=== PATIENT | male | born 1945 | race Caucasian/White ===

== ENCOUNTER 2023-12-11 19:02 | Observation (INO) ==
--- NOTE | 2023-12-11 19:29 | Emergency Department Note ---
Impression & Plan Chest pain, Tachycardia, Non-ST elevation RI (NSTEMI) ED Provider Note HISTORY OF PRESENT ILLNESS: Patient is a 78-year-old male presenting with chest pain and shortness of breath. 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 He reports he became short of breath and felt like his heart was racing. He states that he has had intermittent episodes of this chest pain over the last few months but did not think much of it because it did not last for very long. He reports that today's chest pain lasted for about an hour. He is chest pain-free on arrival, but is complaining of shortness of breath. He denies any DVT or PE history. He denies any history of cardiac stents. He is not on any anticoagulation or antiplatelet therapy. He reports he just drove up from [place] today. He denies any recent long travel or recent surgeries. He denies any nausea or vomiting. ROS: as above PHYSICAL EXAM: Constitutional: Patient appears in no acute distress. HENT: Head: Normocephalic and atraumatic. Eyes: EOMI, PERRL Mouth/Throat: Mucous membranes moist. Neck: Trachea midline. Neck supple. Cardiovascular: Tachycardic with regular rhythm. No murmurs, rubs or gallops. Intact distal pulses. Pulmonary/Chest: No respiratory distress. Breath sounds clear and equal bilaterally. No wheezes or rales. Abdominal: Abdomen soft, no tenderness, rebound or guarding. Musculoskeletal: No edema, tenderness or deformity noted. Skin: Warm and dry. No rash, erythema, pallor or cyanosis Psychiatric: Appropriate mood and affect for situation. Neurological: Alert and keenly responsive. CN II-XII grossly intact, moving all extremities equally and fully. MDM: - Vitals signs showed hypotension and tachycardia - History obtained via patient. History as above. - Chronic conditions affecting care: HTN; HLD - Differential diagnoses include, but are not limited to: Acute coronary syndrome; pulmonary embolism; dissection; tension pneumothorax; esophageal rupture; pneumonia - Order placed for continuous cardiac monitoring. At this time, monitor showed rate of 68 bpm with normal sinus rhythm, per my interpretation. - External medical records reviewed. - EKG interpreted by myself showed narrow complex tachycardia. Rate 156 bpm. No acute ischemic changes. QT 258. No appreciable T waves to appreciate a sinus tachycardia. Concern for SVT. - Laboratory workup interpreted by myself showed normal WBC; elevated dimer (700); stable electrolytes; normal troponin; elevated BNP (149); normal lipase - CXR negative for pneumonia, per my interpretation - CT PE negative for PE - Repeat troponin elevated at 26.1 - After 5 mg IV lopressor, patient's heart rate improved and he converted into normal sinus rhythm. EKG obtained at 194 interpreted by myself showed normal sinus rhythm. Rate 82 bpm. QT 344. No acute ischemic changes. - Discussion was had with correctional case manager about patient's case and need for admission - Hospitalist, Dr. Babin, consulted for admission - [facility] ASSESSMENT AND PLAN: Diagnosis: chest pain; tachycardia; NSTEMI Plan: admit Past Med/Surg History Problem List (Updated 12/11/23 @ 22:59 by Helena Cheatham MD) Non-ST elevation RI (NSTEMI) (Acute) Tachycardia (Acute) Chest pain (Acute) Social History Smoking Status: Never smoker Preferred Language: Danish Feels Safe at Home: Yes Allergies Allergies Allergy/AdvReac Type Severity Reaction Status Date / Time No Known Allergies Allergy Unverified 12/11/23 22:46 Home Meds Home Medications Medication Instructions Recorded Confirmed aspirin 81 mg tablet,delayed 81 mg PO QA 12/11/23 12/11/23 release atorvastatin 20 mg tablet 20 mg PO QA 12/11/23 12/11/23 fludrocortisone 0.1 mg tablet 0.1 mg PO QA 12/11/23 12/11/23 fluticasone propionate 50 1 spray intranasal QA 12/11/23 12/11/23 mcg/actuation nasal spray,suspension rasagiline 0.5 mg tablet 0.5 mg PO QA 12/11/23 12/11/23 Results & Data (ED) Vital Signs Vital Signs - 24 hr 12/11/23 19:09 12/11/23 19:25 12/11/23 19:25 Temperature 36.6 C Temperature Source Temporal Artery Scan Pulse Rate 144 H Pulse Rate from SpO2 Sensor Pulse Rhythm Irregular Respiratory Rate 18 22 Respiratory Effort / Characteristics Non-Labored Spontaneous Respiratory Depth Normal Respiratory Pattern Regular Blood Pressure 93/52 L Blood Pressure Mean 65 Blood Pressure Position Sitting Pulse Oximetry 96 95 95 Oxygen Delivery Method Room Air Room Air Room Air Sepsis Recent Fever Within 48 Hours No Sepsis New/Unexplained Change in Mental Status N/A Sepsis Action Taken by Nursing No Action Required 12/11/23 19:26 12/11/23 19:27 12/11/23 19:31 Temperature Temperature Source Pulse Rate 162 H 140 H Pulse Rate from SpO2 Sensor Pulse Rhythm Respiratory Rate Respiratory Effort / Characteristics Respiratory Depth Respiratory Pattern Blood Pressure 163/104 H 163/104 H Blood Pressure Mean 117 Blood Pressure Position Pulse Oximetry Oxygen Delivery Method Sepsis Recent Fever Within 48 Hours Sepsis New/Unexplained Change in Mental Status Sepsis Action Taken by Nursing 12/11/23 19:33 12/11/23 19:33 12/11/23 19:33 Temperature Temperature Source Pulse Rate 92 H 90 Pulse Rate from SpO2 Sensor 92 H Pulse Rhythm Respiratory Rate 22 Respiratory Effort / Characteristics Respiratory Depth Respiratory Pattern Blood Pressure 143/82 H 143/82 H Blood Pressure Mean 102 110 Blood Pressure Position Pulse Oximetry 98 Oxygen Delivery Method Room Air Sepsis Recent Fever Within 48 Hours Sepsis New/Unexplained Change in Mental Status Sepsis Action Taken by Nursing 12/11/23 19:44 12/11/23 19:45 12/11/23 19:45 Temperature Temperature Source Pulse Rate 86 82 82 Pulse Rate from SpO2 Sensor 86 82 Pulse Rhythm Respiratory Rate 18 19 Respiratory Effort / Characteristics Respiratory Depth Respiratory Pattern Blood Pressure 144/81 H 149/84 H 149/84 H Blood Pressure Mean 102 95 Blood Pressure Position Pulse Oximetry 96 95 Oxygen Delivery Method Room Air Room Air Sepsis Recent Fever Within 48 Hours Sepsis New/Unexplained Change in Mental Status Sepsis Action Taken by Nursing 12/11/23 21:32 Temperature Temperature Source Pulse Rate 68 Pulse Rate from SpO2 Sensor 96 H Pulse Rhythm Respiratory Rate 16 Respiratory Effort / Characteristics Respiratory Depth Respiratory Pattern Blood Pressure 139/96 Blood Pressure Mean 110 Blood Pressure Position Pulse Oximetry 96 Oxygen Delivery Method Room Air Sepsis Recent Fever Within 48 Hours Sepsis New/Unexplained Change in Mental Status Sepsis Action Taken by Nursing Laboratory Data 12/11/23 19:23 12/11/23 19:23 Lab Results 12/11/23 12/11/23 12/11/23 Range/Units 19:23 19:28 21:33 WBC 7.11 (4.8-10.8) K/ul RBC 4.90 (4.70-6.10) M/uL Hgb 14.5 (14.0-18.0) g/dl POC Hgb 15.0 (14.0-18.0) g/dl Hct 45.2 (42.0-52.0) % POC Hct 44 (42-52) % MCV 92.2 (80.0-100.0) fL MCH 29.6 (25.0-34.0) pg MCHC 32.1 (32.0-36.0) g/dL RDW Std Deviation 42.5 (36.4-46.3) fL RDW Coeff of Erica 12.5 (11.5-14.5) % Plt Count 213 (130-400) K/uL MPV 9.5 (9.4-12.4) fL Immature Gran % (Auto) 0.3 % Neut % (Auto) 61.2 % Lymph % (Auto) 22.2 % [place]ster % (Auto) 9.8 % Eos % (Auto) 5.1 % Baso % (Auto) 1.4 % Neut # (Auto) 4.35 (1.40-6.50) K/uL Lymph # (Auto) 1.58 (1.20-3.40) K/uL [place] # (Auto) 0.70 H (0.11-0.59) K/uL Eos # (Auto) 0.36 (0.00-0.50) K/uL Baso # (Auto) 0.10 (0.00-0.20) K/uL Immature Gran # (Auto) 0.02 (0.01-0.20) K/uL D-Dimer 700 H* (0-500) ug/L FEU POC Sodium 143 (135-144) mmol/L Sodium 140 (136-145) mmol/L POC Potassium 3.7 (3.3-5.0) mmol/L Potassium 3.9 (3.5-5.1) mmol/L POC Chloride 106 (101-112) mmol/L Chloride 107 (98-107) mmol/L Carbon Dioxide 28 (21-32) mmol/L POC Total CO2 24 (24-31) mmol/L Anion Gap 5 (3-11) POC Anion Gap 18.0 (16-25) mmol/L POC BUN 27 H (7-18) mg/dl BUN 27 H (6-23) mg/dl Creatinine 1.01 (0.6-1.4) mg/dl POC Creatinine 1.1 (0.6-1.3) mg/dl Est Cr Clr Drug Dosing 61.3 ml/min eGFR 76.60 BUN/Creatinine Ratio 26.7 H (10-20) Glucose 109 H (70-99(Fasting)) mg/dl POC Glucose (other) 109 H (70-99) mg/dl Calcium 9.1 (8.6-10.3) mg/dl POC Ioniz Calcium Trey 1.23 (1.12-1.32) mmol/l Magnesium 2.1 (1.7-2.4) mg/dl Total Bilirubin 0.5 (0.2-1.0) mg/dl AST 18 (13-39) U/L ALT 12 (7-52) U/L Alkaline Phosphatase 74 (34-104) U/L Troponin I High Sens 8.0 26.1 H D (0-20) pg/ml B-Natriuretic Peptide 149 H (0-100) pg/ml Total Protein 6.6 (6.0-8.3) gm/dl Albumin 3.9 (3.4-5.0) gm/dl Globulin 2.7 (2.5-4.0) gm/dl Albumin/Globulin Ratio 1.4 (0.9-2) Lipase 40 (11-82) U/L Administered Medications Discontinued Medications Ioversol (Optiray 320 125ml) 118 ml IV ONCE ONE Stop: 12/11/23 20:07 Last Admin: 12/11/23 20:07 Dose: 118 ml Documented By: KEAGAN Metoprolol Tartrate (Metoprolol Tartrate 1 Mg/Ml Vial) 5 mg IV NOW STA Stop: 12/11/23 19:28 Last Admin: 12/11/23 19:31 Dose: 5 mg Documented By: CARMELINA Imaging Data Radiologist's Impression: Chest CTA 12/11/23 19:43 Exam(s): CTA CHEST EXAM: CT Angiography Chest With Intravenous Contrast CLINICAL HISTORY: Reason for exam: PE. TECHNIQUE: Axial computed tomographic angiography images of the chest with intravenous contrast. CTDI is 11.87 mGy and DLP is 573.81 mGy-cm. Automated exposure control was utilized for the study. A dose lowering technique was utilized adhering to the principles of ALARA. MIP reconstructed images were created and reviewed. COMPARISON: None. FINDINGS: Motion-induced image degradation. Pulmonary arteries: Main/central pulmonary arteries are normal in caliber. No pulmonary embolism. Aorta: No acute findings. Atherosclerotic calcification of the aortic arch. No thoracic aortic aneurysm. Heart: Mild/moderate cardiomegaly. No significant pericardial effusion. No evidence of RV dysfunction. Lungs: Central airways are patent. Bilateral bronchial wall thickening and mild dilatation/tubular bronchiectasis. Bilateral interstitial/septal thickening, mild/moderate centrilobular emphysema. Bibasilar subpleural and parenchymal interlobular/intra-lobular reticular interstitial thickening with linear areas of atelectasis demonstrated. Biapical mild pleural/parenchymal thickening. Medially in the left lower lobe adjacent to the esophagus a small calcified nodule/granuloma seen. No mass. No consolidation. Pleural space: Unremarkable. No significant effusion. No pneumothorax. Bones/joints: No acute fracture. No dislocation. Mid/lower thoracic degenerative endplate spondylosis with anteriorly bridging osteophytes. Soft tissues: Unremarkable. Lymph nodes: Small calcified prevascular and left hilar lymph nodes. No enlarged lymph nodes. IMPRESSION: No pulmonary embolism, aortic aneurysm or dissection. Bilateral bronchial wall thickening, mild central tubular bronchiectasis and centrilobular pulmonary emphysema. Bibasilar subpleural and parenchymal fibrotic reticular mild interstitial opacities with associated linear areas of atelectasis.. Mild/moderate cardiomegaly. Electronically signed by: Prasad Adrian MD, ELLEN 12/11/23 21:04 PM Discharge Plan Visit Data Chief Complaint: Cardiac Assessment Stated Complaint: CHEST PAINS, SOB, LEFT SIDE PAIN, WEAK ED Provider: Helena Cheatham Discharge Problem: Chest pain, Tachycardia, Non-ST elevation RI (NSTEMI) Forms Stand Alone Forms: [facility] B-Obvious Prescriptions Prescriptions: No Action atorvastatin 20 mg tablet 20 mg PO QAM fludrocortisone 0.1 mg tablet 0.1 mg PO QAM rasagiline 0.5 mg tablet 0.5 mg PO QAM aspirin [Aspir-Low] 81 mg Tablet,Delayed Release (Dr/Ec) 81 mg PO QAM fluticasone propionate 50 mcg/actuation spray,suspension 1 spray INTRANASAL QAM Referrals Referrals: PCP,NO [Primary Care Provider] -
[2023-12-11] MEDS: METOPROLOL TARTRATE 1 MG/ML VIAL IV STA (19:31)
[2023-12-11 19:41] LABS: iSTAT Creatinine 1.1 mg/dl (0.6-1.3); iSTAT Ionized Calcium 1.23 mmol/l (1.12-1.32); iSTAT Potassium 3.7 mmol/L (3.3-5.0)
[2023-12-11 19:41] LABS: Basophils % (auto) 1.4 %; Eosinophils # (auto) 0.36 K/uL (0.00-0.50); Eosinophils % (auto) 5.1 %; Hematocrit (blood only) 45.2 % (42.0-52.0); Hemoglobin 14.5 g/dl (14.0-18.0); Immature Granulocytes # (auto) 0.02 K/uL (0.01-0.20); Immature Granulocytes % (auto) 0.3 %; Lymphocytes # (auto) 1.58 K/uL (1.20-3.40); Lymphocytes % (auto) 22.2 %; Mean Corpuscular Hemoglobin 29.6 pg (25.0-34.0); Mean Corpuscular Hgb Conc 32.1 g/dL (32.0-36.0); Mean Corpuscular Volume 92.2 fL (80.0-100.0); Mean Platelet Volume 9.5 fL (9.4-12.4); Monocytes % (auto) 9.8 %; Neutrophils # (auto) 4.35 K/uL (1.40-6.50); Neutrophils % (auto) 61.2 %; Platelet Count 213 K/uL (130-400); RDW Coefficient of Variation 12.5 % (11.5-14.5); RDW Standard Deviation 42.5 fL (36.4-46.3); White Blood Count 7.11 K/ul (4.8-10.8)
[2023-12-11 19:55] LABS: Albumin Globulin Ratio 1.4 (0.9-2); Albumin Level 3.9 gm/dl (3.4-5.0); BUN Creatinine Ratio 26.7 (10-20); Bilirubin,Total 0.5 mg/dl (0.2-1.0); Calcium 9.1 mg/dl (8.6-10.3); Creatinine Clr Calc Pharmacy 61.3 ml/min; Globulin 2.7 gm/dl (2.5-4.0); Magnesium 2.1 mg/dl (1.7-2.4); Potassium 3.9 mmol/L (3.5-5.1); Total Protein 6.6 gm/dl (6.0-8.3)
[2023-12-11] MEDS: OPTIRAY 320 125ml IV ONE (20:07)
[2023-12-11 20:13] LABS: D Dimer 700 ug/L FEU (0-500)
--- NOTE | 2023-12-11 21:06 | CT Scan Report ---
Exam(s): CTA CHEST EXAM: CT Angiography Chest With Intravenous Contrast CLINICAL HISTORY: Reason for exam: PE. TECHNIQUE: Axial computed tomographic angiography images of the chest with intravenous contrast. CTDI is 11.87 mGy and DLP is 573.81 mGy-cm. Automated exposure control was utilized for the study. A dose lowering technique was utilized adhering to the principles of ALARA. MIP reconstructed images were created and reviewed. COMPARISON: None. FINDINGS: Motion-induced image degradation. Pulmonary arteries: Main/central pulmonary arteries are normal in caliber. No pulmonary embolism. Aorta: No acute findings. Atherosclerotic calcification of the aortic arch. No thoracic aortic aneurysm. Heart: Mild/moderate cardiomegaly. No significant pericardial effusion. No evidence of RV dysfunction. Lungs: Central airways are patent. Bilateral bronchial wall thickening and mild dilatation/tubular bronchiectasis. Bilateral interstitial/septal thickening, mild/moderate centrilobular emphysema. Bibasilar subpleural and parenchymal interlobular/intra-lobular reticular interstitial thickening with linear areas of atelectasis demonstrated. Biapical mild pleural/parenchymal thickening. Medially in the left lower lobe adjacent to the esophagus a small calcified nodule/granuloma seen. No mass. No consolidation. Pleural space: Unremarkable. No significant effusion. No pneumothorax. Bones/joints: No acute fracture. No dislocation. Mid/lower thoracic degenerative endplate spondylosis with anteriorly bridging osteophytes. Soft tissues: Unremarkable. Lymph nodes: Small calcified prevascular and left hilar lymph nodes. No enlarged lymph nodes. IMPRESSION: No pulmonary embolism, aortic aneurysm or dissection. Bilateral bronchial wall thickening, mild central tubular bronchiectasis and centrilobular pulmonary emphysema. Bibasilar subpleural and parenchymal fibrotic reticular mild interstitial opacities with associated linear areas of atelectasis.. Mild/moderate cardiomegaly. Electronically signed by: Prasad Adrian MD, DABR 12/11/23 21:04 PM
--- NOTE | 2023-12-11 22:53 | History & Physical Report ---
Date of Service December 11, 2023 Assessment & Plan (1) Chest pain: Plan: 78yo male with history of myocardial bridging presenting with acute episode of chest pain. Patient with mild elevation of troponin on repeat 8 --> 26.1. Presently chest pain free. Initial EKG with narrow complex tachycardia - ?atrial flutter vs SVT s/p return to NSR following Metoprolol 5mg IV. Elevation of troponin possibly rate related. Patient remains chest pain free. -Observation to PCU -Telemetry monitoring -Trend troponin -Check 2D echo (mild to moderate cardiomegaly noted on CT imaging) -EKG as needed for chest pain -Nitrogylcerine PRN chest pain -Cardiology consultation appreciated -Records from home model [employer] requested -Continue home ASA, Atorvastatin (2) Tachycardia: Plan: Possible atrial flutter vs SVT on arrival - resolved with IV Metoprolol -Telemetry monitoring -Check 2D echo -Cardiology consultation appreciated Plan Orthostatic hypotension -Continue Fludrocortisone History of Present Illness Chief Complaint: chest pain Primary Care Provider: NO PCP Justus Monge is a pleasant 78yo male with history of benign essential tremor and hypotension presenting with complaint of chest pain. Patient resides in the [facility] and is here for the football game. Earlier today around 16:00 he was unloading a car when he developed acute sudden substernal chest pain with radiation to the left shoulder. Patient reports the pain as pressure, some associated shortness of breath and lightheadedness. The chest pain lasted several hours then resolved on its own. Patient had a similar episode of chest pain several weeks ago which occurred while he was laying in bed trying to go to sleep. He reports difficulty getting comfortable. Pain lasted several hours on that occasion then resolved on its own. Patient endorses progressive NICHOLAS and decreased exercise tolerance over the last few months. Otherwise he denies palpitations, abdominal pain, nausea, vomiting, diarrhea, edema, orthopnea or weight gain. He denies heartburn, no trauma or overuse recently. Upon arrival to the ER patient with narrow complex tachycardia at 156bpm concerning for SVT. He was given Metoprolol 5mg IV with return to NSR. ER Course: Metoprolol 5mg IV Patient reports no personal history of CAD or prior DE. He did have a cardiac catheterization performed 5-6 years ago in [place] at [facility]. 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 No stents were placed. Patient was started on Metoprolol at that time. He follows with [facility] [place] - Dr. Reaves Allergies Allergy/AdvReac Type Severity Reaction Status Date / Time No Known Allergies Allergy Unverified 12/11/23 22:46 Home Medications Medication Instructions Recorded Confirmed Type aspirin 81 mg tablet,delayed 81 mg PO QA 12/11/23 12/11/23 History release atorvastatin 20 mg tablet 20 mg PO QA 12/11/23 12/11/23 History fludrocortisone 0.1 mg tablet 0.1 mg PO QAM 12/11/23 12/11/23 History fluticasone propionate 50 1 spray intranasal QA 12/11/23 12/11/23 History mcg/actuation nasal spray,suspension rasagiline 0.5 mg tablet 0.5 mg PO QA 12/11/23 12/11/23 History Past Med/Surg History Problem List (Updated 12/12/23 @ 01:18 by Delores Babin DO) Non-ST elevation DE (NSTEMI) (Acute) Tachycardia (Acute) Chest pain (Acute) Medical History (Updated 12/12/23 @ 01:18 by Delores Babin DO) History of kidney stones Benign essential tremor Orthostatic hypotension Surgical History (Updated 12/12/23 @ 01:18 by Delores Babin DO) History of cervical spinal surgery Family History (Updated 12/12/23 @ 01:19 by Delores Babin DO) Other Coronary heart disease Social History (Updated 12/12/23 @ 01:19 by Delores Babin DO) Smoking Status: Never smoker Do You Dip or Chew Tobacco: No; Hx Alcohol Use: Yes Alcohol Intake Frequency: 2-3 x/Week Hx Substance Use: No Preferred Language: Kuwaiti Feels Safe at Home: Yes Review of Systems Review of Systems: All systems reviewed & are unremarkable except as noted in HPI & below Physical Exam Physical Exam: General: patient resting comfortably, NAD, non-toxic in appearance, AA&O x 4 Skin: warm, dry, intact, no rashes or lesions HEENT: NC/AT, PERRL, EOMI, anicteric sclera, conjunctiva without injection, external ear normal to inspection and nontender, nares patent, moist mucus membranes, dentition intact, no oropharyngeal lesions, neck supple, trachea midline, no LAD, no thyromegaly, no JVD Heart: +S1/S2, regular, no m/r/g Lungs: equal air entry bilaterally, no rales/rhonchi/wheezes Abd: +BS, soft, NT/ND, no masses/organomegaly/ascites Ext: warm, 2+ pulses in UE/LE bilaterally, no clubbing/cyanosis or edema Neuro: nonfocal, patient AA&O x 4, speech intact, no facial droop, moving all extremities on command with equal strength 5/5 Results & Data Results & Data Vital Signs (Past 12 Hours) Vital Signs Temp Pulse Resp BP Pulse Ox O2 Del Method 12/11/23 21:32 68 16 139/96 96 Room Air 12/11/23 19:45 82 149/84 H 12/11/23 19:45 82 19 149/84 H 95 Room Air 12/11/23 19:44 86 18 144/81 H 96 Room Air 12/11/23 19:33 90 12/11/23 19:33 143/82 H 12/11/23 19:33 92 H 22 143/82 H 98 Room Air 12/11/23 19:31 140 H 163/104 H 12/11/23 19:27 162 H 12/11/23 19:26 163/104 H 12/11/23 19:25 144 H 22 95 Room Air 12/11/23 19:25 95 Room Air 12/11/23 19:09 36.6 C 18 93/52 L 96 Room Air Laboratory Results Laboratory Results WBC 7.11 K/ul (4.8-10.8) 12/11/23 19:23 RBC 4.90 M/uL (4.70-6.10) 12/11/23 19:23 Hgb 14.5 g/dl (14.0-18.0) 12/11/23 19:23 POC Hgb 15.0 g/dl (14.0-18.0) 12/11/23 19:28 Hct 45.2 % (42.0-52.0) 12/11/23 19:23 POC Hct 44 % (42-52) 12/11/23 19:28 MCV 92.2 fL (80.0-100.0) 12/11/23 19:23 MCH 29.6 pg (25.0-34.0) 12/11/23 19:23 MCHC 32.1 g/dL (32.0-36.0) 12/11/23 19:23 RDW Std Deviation 42.5 fL (36.4-46.3) 12/11/23 19:23 RDW Coeff of Erica 12.5 % (11.5-14.5) 12/11/23 19:23 Plt Count 213 K/uL (130-400) 12/11/23 19:23 MPV 9.5 fL (9.4-12.4) 12/11/23 19:23 Immature Gran % (Auto) 0.3 % 12/11/23 19:23 Neut % (Auto) 61.2 % 12/11/23 19:23 Lymph % (Auto) 22.2 % 12/11/23 19:23 Thomas % (Auto) 9.8 % 12/11/23 19:23 Eos % (Auto) 5.1 % 12/11/23 19:23 Baso % (Auto) 1.4 % 12/11/23 19:23 Neut # (Auto) 4.35 K/uL (1.40-6.50) 12/11/23 19:23 Lymph # (Auto) 1.58 K/uL (1.20-3.40) 12/11/23 19:23 Thomas # (Auto) 0.70 K/uL (0.11-0.59) H 12/11/23 19:23 Eos # (Auto) 0.36 K/uL (0.00-0.50) 12/11/23 19:23 Baso # (Auto) 0.10 K/uL (0.00-0.20) 12/11/23 19:23 Immature Gran # (Auto) 0.02 K/uL (0.01-0.20) 12/11/23 19:23 D-Dimer 700 ug/L FEU (0-500) H* 12/11/23 19:23 POC Sodium 143 mmol/L (135-144) 12/11/23 19:28 Sodium 140 mmol/L (136-145) 12/11/23 19:23 POC Potassium 3.7 mmol/L (3.3-5.0) 12/11/23 19:28 Potassium 3.9 mmol/L (3.5-5.1) 12/11/23 19:23 POC Chloride 106 mmol/L (101-112) 12/11/23 19:28 Chloride 107 mmol/L (98-107) 12/11/23 19:23 Carbon Dioxide 28 mmol/L (21-32) 12/11/23 19:23 POC Total CO2 24 mmol/L (24-31) 12/11/23 19:28 Anion Gap 5 (3-11) 12/11/23 19:23 POC Anion Gap 18.0 mmol/L (16-25) 12/11/23 19:28 POC BUN 27 mg/dl (7-18) H 12/11/23 19:28 BUN 27 mg/dl (6-23) H 12/11/23 19:23 Creatinine 1.01 mg/dl (0.6-1.4) 12/11/23 19:23 POC Creatinine 1.1 mg/dl (0.6-1.3) 12/11/23 19:28 Est Cr Clr Drug Dosing 61.3 ml/min 12/11/23 19:23 eGFR 76.60 10/03/24 19:23 BUN/Creatinine Ratio 26.7 (10-20) H 12/11/23 19:23 Glucose 109 mg/dl (70-99(Fasting)) H 12/11/23 19:23 POC Glucose (other) 109 mg/dl (70-99) H 12/11/23 19:28 Calcium 9.1 mg/dl (8.6-10.3) 12/11/23 19:23 POC Ioniz Calcium Trey 1.23 mmol/l (1.12-1.32) 12/11/23 19:28 Magnesium 2.1 mg/dl (1.7-2.4) 12/11/23 19:23 Total Bilirubin 0.5 mg/dl (0.2-1.0) 12/11/23 19:23 AST 18 U/L (13-39) 12/11/23 19:23 ALT 12 U/L (7-52) 12/11/23 19:23 Alkaline Phosphatase 74 U/L (34-104) 12/11/23 19:23 Troponin I High Sens 26.1 pg/ml (0-20) H D 12/11/23 21:33 B-Natriuretic Peptide 149 pg/ml (0-100) H 12/11/23 19:23 Total Protein 6.6 gm/dl (6.0-8.3) 12/11/23 19:23 Albumin 3.9 gm/dl (3.4-5.0) 12/11/23 19:23 Globulin 2.7 gm/dl (2.5-4.0) 12/11/23 19:23 Albumin/Globulin Ratio 1.4 (0.9-2) 12/11/23 19:23 Lipase 40 U/L (11-82) 12/11/23 19:23 Impressions Chest CTA 12/11/23 19:43 Exam(s): CTA CHEST EXAM: CT Angiography Chest With Intravenous Contrast CLINICAL HISTORY: Reason for exam: PE. TECHNIQUE: Axial computed tomographic angiography images of the chest with intravenous contrast. CTDI is 11.87 mGy and DLP is 573.81 mGy-cm. Automated exposure control was utilized for the study. A dose lowering technique was utilized adhering to the principles of ALARA. MIP reconstructed images were created and reviewed. COMPARISON: None. FINDINGS: Motion-induced image degradation. Pulmonary arteries: Main/central pulmonary arteries are normal in caliber. No pulmonary embolism. Aorta: No acute findings. Atherosclerotic calcification of the aortic arch. No thoracic aortic aneurysm. Heart: Mild/moderate cardiomegaly. No significant pericardial effusion. No evidence of RV dysfunction. Lungs: Central airways are patent. Bilateral bronchial wall thickening and mild dilatation/tubular bronchiectasis. Bilateral interstitial/septal thickening, mild/moderate centrilobular emphysema. Bibasilar subpleural and parenchymal interlobular/intra-lobular reticular interstitial thickening with linear areas of atelectasis demonstrated. Biapical mild pleural/parenchymal thickening. Medially in the left lower lobe adjacent to the esophagus a small calcified nodule/granuloma seen. No mass. No consolidation. Pleural space: Unremarkable. No significant effusion. No pneumothorax. Bones/joints: No acute fracture. No dislocation. Mid/lower thoracic degenerative endplate spondylosis with anteriorly bridging osteophytes. Soft tissues: Unremarkable. Lymph nodes: Small calcified prevascular and left hilar lymph nodes. No enlarged lymph nodes. IMPRESSION: No pulmonary embolism, aortic aneurysm or dissection. Bilateral bronchial wall thickening, mild central tubular bronchiectasis and centrilobular pulmonary emphysema. Bibasilar subpleural and parenchymal fibrotic reticular mild interstitial opacities with associated linear areas of atelectasis.. Mild/moderate cardiomegaly. Electronically signed by: Prasad Adrian MD, DABR 12/11/23 21:04 PM ECG Additional Comments: EKG with NSR at 82bpm, normal axis, CH=179, QRS=74, VQe=898, possible left atrial enlargement Code Status & VTE Plan VTE Prophylaxis Plan VTE Prophylaxis will be ordered: Yes PG Care Time/CCT Total # of Minutes Spent Total Time Spent with Patient: Total time spent is greater than 50% in coordination of care (as documented) at patient's floor/unit and/or counseling patient: Coding Level of Care Code 58321 INT INP/OBS CARE 2/55MIN Diagnoses Chest pain R07.9 Tachycardia R00.0
[2023-12-12] MEDS ORDERED: ONDANSETRON INJ 2 MG/ML 2 ML VIAL IV PRN (01:02)
[2023-12-12] MEDS ORDERED: NITROGLYCERIN SL 0.4 MG/TAB TAB SL PRN (01:02)
[2023-12-12 01:25] VITALS: RESP 18
[2023-12-12 03:18] LABS: Hematocrit (blood only) 40.6 % (42.0-52.0); Hemoglobin 13.2 g/dl (14.0-18.0); Mean Corpuscular Hemoglobin 29.7 pg (25.0-34.0); Mean Corpuscular Hgb Conc 32.5 g/dL (32.0-36.0); Mean Corpuscular Volume 91.4 fL (80.0-100.0); Mean Platelet Volume 9.3 fL (9.4-12.4); Platelet Count 180 K/uL (130-400); RDW Coefficient of Variation 12.5 % (11.5-14.5); RDW Standard Deviation 41.8 fL (36.4-46.3); Red Blood Count 4.44 M/uL (4.70-6.10); White Blood Count 6.46 K/ul (4.8-10.8)
[2023-12-12 03:35] LABS: Calcium 8.6 mg/dl (8.6-10.3); Creatinine Clr Calc Pharmacy 80.3 ml/min; Potassium 3.5 mmol/L (3.5-5.1)
[2023-12-12] MEDS: ENOXAPARIN INJ 40 MG/0.4 ML SYR SQ SCH (06:17)
--- NOTE | 2023-12-12 06:48 | XRay Report ---
XR chest 1V portable HISTORY: 78 years-old Male Chest pain, nonspecific COMPARISON: CTA chest of same day TECHNIQUE: AP view of the chest FINDINGS: Cardiomediastinal and hilar silhouettes are within normal limits. No pneumothorax, pleural effusion o r pulmonary edema. Mild subsegmental bibasilar atelectasis. Bones appear grossly intact. IMPRESSION: No acute process. ACT 112: Negative or not required by law. The above report was generated using voice recognition software. It may contain grammatical, syntax o r spelling errors. Electronically signed by: Ronni Mcnally M.D. 12/12/2023 6:46 AM
[2023-12-12] MEDS: ATORVASTATIN 20 MG TAB PO SCH (08:21)
[2023-12-12] MEDS: FLUDROCORTISONE ACETATE 0.1 MG TAB PO SCH (08:21)
[2023-12-12] MEDS: ASPIRIN 81 MG ECTAB PO SCH (08:21)
[2023-12-12] MEDS ORDERED: INFLUENZA VACC TS2024-25(65y+)/PF (IIV3) 0.5mL Syr IM ONE (09:00)
--- NOTE | 2023-12-12 09:07 | XCELERA ---
[id number]
--- NOTE | 2023-12-12 10:29 | Cardiology Consultation ---
Date of Consultation December 12, 2023 Assessment & Plan (1) Chest pain: (2) Atrial fibrillation: (3) Atrial septal aneurysm: (4) Diastolic dysfunction: Plan 1. Chest pain: The symptoms are certainly concerning for cardiac ischemia. However, while sometimes brought on by activity they do not appear to resolve with rest. He had an extended episode of symptoms yesterday before presenting to the emergency room and initial biomarkers were normal. Additionally, the mild rise in biomarkers is not consistent with an extended acute coronary syndrome or period of ischemia. Therefore, I do not believe his chest pain is related to an acute coronary syndrome or coronary disease. The etiology of his chest pain is unclear, but possibly related to atrial fibrillation. He has had symptoms over the past several weeks which are fairly transient include certainly correspond with transient episodes of atrial fibrillation. His symptoms did appear to resolve when the atrial fibrillation terminated in the emergency room. 2. Elevated troponin: Only mild elevation in troponin. More consistent with the high heart rates and demand ischemia rather than acute coronary syndrome. Again, the extended nature of his episodes without significant rise in biomarkers is not consistent with acute coronary syndrome. 3. Orthostatic hypotension: Reportedly has a history of orthostatic hypotension. Curiously, his symptoms recently started with discontinuation of his beta-alena. I think now that he is on fludrocortisone and has few symptoms we could at least rechallenge him with Toprol both for rate control and symptom improvement. If this was not tolerated there are many additional options for addressing paroxysmal atrial fibrillation. 4. Atrial fibrillation: His initial EKG was more suggestive of an atrial flutter. However, telemetry monitoring is more consistent with atrial fibrillation. Atrial fibrillation would be the more likely arrhythmia especially given the transient episodes and spontaneous resolution. This may be the etiology of his symptoms although there is not a clear correlation. Perhaps outpatient monitoring would provide a definite relationship between the 2. We did discuss the increased risk of stroke associated with atrial fibrillation. His [id number] score is at least 2. I did recommend starting Eliquis 5 mg twice daily. We can discontinue his aspirin once he starts Eliquis. 5. Atrial septal aneurysm: Noted incidentally on his echocardiogram. No evidence of PFO or shunting. No indication for additional evaluation at this point. 6. Diastolic dysfunction: Doppler evaluation would suggest stage II diastolic dysfunction although with the E/e ratio was actually quite low. I think he will be safe for discharge today provided he feels well ambulating around the tadeo. I would stop his aspirin and start Eliquis 5 mg twice daily. It seems reasonable to rechallenge with his prior dose of metoprolol or metoprolol tartrate 25 mg twice daily. If he feels well he could continue the medication. Outpatient monitoring may also be helpful to elucidate any additional occult episodes of atrial fibrillation and their association with his symptoms. 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 History of Present Illness Reason for Consultation: Chest pain, elevated troponin, atrial fibrillation Requesting Physician: Olaf Attending Physician: Foster Spence MD History of Present Illness The patient is a 78-year-old gentleman with a history of orthostatic hypotension, hyperlipidemia and tremor who presented to the hospital for symptoms of chest discomfort. Patient states that over the past several weeks he has been noticing episodes of chest discomfort. Oftentimes these are quite brief in duration. He has had a few extended episodes. The discomfort appears to be in the left lower precordium. It tends to happen with exertion, but is not relieved with rest. It is associated with some dyspnea as well. He has been having some more dyspnea on exertion. Specifically when ascending stairs. This does not appear to involve dizziness or lightheadedness. Yesterday he developed an episode of discomfort and breathing difficulty when doing light work around his house. He symptoms did not resolve and he presented to the emergency room for an evaluation. He felt that there was some radiation into the left trapezius area. In the emergency room he was found to be in a rapid ventricular rhythm and was administered metoprolol. With resolution of the arrhythmia his symptoms also improved. He states that he had a very brief episode of chest discomfort overnight. More recently the patient has been evaluated for symptoms of dizziness with changes in position. He seems to have been diagnosed with orthostatic hypotension. He was previously on metoprolol for a tremor and this was discontinued. He was also started on fludrocortisone. His symptoms appear to have improved significantly on medical therapy. Not currently dizzy standing upwards or with changes in position. No history of syncope. Generally no palpitations or sensation of rapid heartbeat. Allergies Allergy/AdvReac Type Severity Reaction Status Date / Time No Known Allergies Allergy Unverified 12/11/23 22:46 Home Medications Medication Instructions Recorded Confirmed Type aspirin 81 mg tablet,delayed 81 mg PO QAM 12/11/23 12/11/23 History release atorvastatin 20 mg tablet 20 mg PO QAM 12/11/23 12/11/23 History fludrocortisone 0.1 mg tablet 0.1 mg PO QAM 12/11/23 12/11/23 History fluticasone propionate 50 1 spray intranasal QAM 12/11/23 12/11/23 History mcg/actuation nasal spray,suspension rasagiline 0.5 mg tablet 0.5 mg PO QAM 12/11/23 12/11/23 History Patient History Medical History (Updated 12/12/23 @ 12:39 by Dario Faye MD) History of kidney stones Benign essential tremor Orthostatic hypotension Surgical History (Updated 12/12/23 @ 01:18 by Delores Babin DO) History of cervical spinal surgery Family History (Updated 12/12/23 @ 01:19 by Delores Babin DO) Other Coronary heart disease Social History (Updated 12/12/23 @ 01:19 by Delores Babin DO) Smoking Status: Never smoker Do You Dip or Chew Tobacco: No; Hx Alcohol Use: Yes Alcohol type: beer and hard liquor Alcohol Intake Frequency: 2-3 x/Week Hx Substance Use: No Preferred Language: Afghan Communication Ability: Effective Senior Energy Analyst Required: No Beliefs That Will Affect Care: None Current Living Situation: Spouse Other Information That Helps Us Care for You: No Feels Safe at Home: Yes Safety Concerns: Feels Safe At This Time Assistive Devices: None Assistive Devices Comment: reading glasses Review of Systems Review of Systems: Per HPI. Physical Exam Physical Exam: The patient is alert and oriented. Mood and affect appeared normal. He answered all questions appropriately. HEENT: Pupils are equal and reactive to light and accommodation. Extraocular movements are intact. The sclerae are anicteric. Neuro: Cranial nerves intact. Resting tremor noted in left hand Neck: Patient's neck is supple. He has palpable carotid pulses bilaterally without bruits on auscultation. There is no evidence of jugular venous distention. The thyroid is not enlarged. Lungs: Clear to auscultation bilaterally. He has good air movement without use of accessory muscles. No rales wheezes or rhonchi. Cardiac: Heart demonstrates a regular rate and rhythm. Normal S1 and S2. No murmurs on examination. Pulses: The patient has palpable radial pulses bilaterally that are equal in intensity Extremities: There was no evidence of hypoperfusion. There is no cyanosis or clubbing. There is no edema. Skin: I did not appreciate any rashes on examination today. Results & Data Vital Signs (Past 12 Hours) Vital Signs Temp Pulse Pulse Pulse Resp BP Pulse Ox 12/12/23 07:35 36.7 C 65 18 127/66 95 12/12/23 07:34 68 12/12/23 05:08 36.8 C 65 18 126/71 93 12/12/23 01:09 36.4 C L 69 18 145/78 H 94 12/11/23 23:41 62 O2 Del Method 12/12/23 07:35 Room Air 12/12/23 07:34 12/12/23 05:08 Room Air 12/12/23 01:09 Room Air 12/11/23 23:41 Laboratory Results Abnormal Lab Results 12/11/23 12/11/23 12/11/23 19:23 19:28 21:33 WBC 7.11 RBC 4.90 Hgb 14.5 POC Hgb 15.0 Hct 45.2 POC Hct 44 MCV 92.2 MCH 29.6 MCHC 32.1 RDW Std Deviation 42.5 RDW Coeff of Erica 12.5 Plt Count 213 MPV 9.5 Immature Gran % (Auto) 0.3 Neut % (Auto) 61.2 Lymph % (Auto) 22.2 [place] % (Auto) 9.8 Eos % (Auto) 5.1 Baso % (Auto) 1.4 Neut # (Auto) 4.35 Lymph # (Auto) 1.58 [place] # (Auto) 0.70 H Eos # (Auto) 0.36 Baso # (Auto) 0.10 Immature Gran # (Auto) 0.02 D-Dimer 700 H* POC Sodium 143 Sodium 140 POC Potassium 3.7 Potassium 3.9 POC Chloride 106 Chloride 107 Carbon Dioxide 28 POC Total CO2 24 Anion Gap 5 POC Anion Gap 18.0 POC BUN 27 H BUN 27 H Creatinine 1.01 POC Creatinine 1.1 Est Cr Clr Drug Dosing 61.3 eGFR 76.60 BUN/Creatinine Ratio 26.7 H Glucose 109 H POC Glucose (other) 109 H Calcium 9.1 POC Ioniz Calcium Trey 1.23 Magnesium 2.1 Total Bilirubin 0.5 AST 18 ALT 12 Alkaline Phosphatase 74 Troponin I High Sens 8.0 26.1 H D B-Natriuretic Peptide 149 H Total Protein 6.6 Albumin 3.9 Globulin 2.7 Albumin/Globulin Ratio 1.4 Lipase 40 12/12/23 12/12/23 02:59 09:28 WBC 6.46 RBC 4.44 L Hgb 13.2 L POC Hgb Hct 40.6 L POC Hct MCV 91.4 MCH 29.7 MCHC 32.5 RDW Std Deviation 41.8 RDW Coeff of Erica 12.5 Plt Count 180 MPV 9.3 L Immature Gran % (Auto) Neut % (Auto) Lymph % (Auto) [place] % (Auto) Eos % (Auto) Baso % (Auto) Neut # (Auto) Lymph # (Auto) [place] # (Auto) Eos # (Auto) Baso # (Auto) Immature Gran # (Auto) D-Dimer POC Sodium Sodium 141 POC Potassium Potassium 3.5 POC Chloride Chloride 110 H Carbon Dioxide 27 POC Total CO2 Anion Gap 4 POC Anion Gap POC BUN BUN 20 Creatinine 0.77 POC Creatinine Est Cr Clr Drug Dosing 80.3 eGFR 92.21 BUN/Creatinine Ratio 26.0 H Glucose 97 POC Glucose (other) Calcium 8.6 POC Ioniz Calcium Trey Magnesium Total Bilirubin AST ALT Alkaline Phosphatase Troponin I High Sens 35.0 H 19.2 D B-Natriuretic Peptide Total Protein Albumin Globulin Albumin/Globulin Ratio Lipase Diagnostic Findings Chest x-ray obtained at the time admission did not reveal any acute cardiopulmonary process Chest CTA performed 12/11/2023 did not reveal any evidence of pulmonary embolus. Mild bronchiectasis. Mild pulmonary emphysema. Mild to moderate cardiomegaly. Echocardiogram 12/12/2023: Normal LV systolic function and wall motion. Stage II diastolic dysfunction. Mild LVH. Mild right atrial dilation. Atrial septal aneurysm without evidence of PFO. PG Care Time/CCT Total # of Minutes Spent Total Time Spent with Patient: Total time spent is greater than 50% in coordination of care (as documented) at patient's floor/unit and/or counseling patient: Coding Level of Care Code 09218 INT INP/OBS CARE 3/75MIN Diagnoses Chest pain R07.9 Atrial fibrillation I48.91 Atrial septal aneurysm I25.3 Diastolic dysfunction I51.89
--- NOTE | 2023-12-12 10:37 | Electrocardiogram Report ---
Test Reason : Blood Pressure : */* mmHG Vent. Rate : 156 BPM Atrial Rate : 312 BPM P-R Int : * ms QRS Dur : 82 ms QT Int : 258 ms P-R-T Axes : 183 63 -84 degrees QTcB Int : 415 ms Atrial flutter with variable A-V block ST depression, consider subendocardial injury Abnormal ECG No previous ECGs available Confirmed by Dario Faye ([id number]) on 12/12/2023 10:37:18 AM Referred By: REFERRED SELF Confirmed By: Dario Faye
[2023-12-12] MEDS ORDERED: METOPROLOL SUCC 25MG EXT REL TAB PO SCH (13:30)
--- NOTE | 2023-12-12 13:47 | Discharge Summary ---
Discharge Summary Date of Service December 12, 2023 Principal Dx & Hospital Course #1 = Principal Diagnosis (1) Atrial fibrillation: (2) Atrial septal aneurysm: (3) Diastolic dysfunction: (4) Elevated troponin: Plan 78-year-old male with past medical history of benign essential tremor and orthostatic hypotension who presents with complaint of chest pain and was found to be in atrial flutter/fibrillation #Chest pain: In setting of atrial fibrillation: Resolved #Atrial fibrillation #Elevated troponin, likely type II [place] in the setting of demand ischemia from atrial fibrillation #Diastolic dysfunction #Atrial septal aneurysm Patient was admitted for observation Troponins were initially slightly elevated and peaked at 35 He was given IV metoprolol with conversion back to sinus rhythm He is currently in sinus rhythm He was seen by cardiology He had an echo done which showed left ventricular systolic function is normal with EF of 55 to 60% with grade 2 diastolic dysfunction. The right atrium is mildly dilated. Atrial septal aneurysm incidentally noted with small hemodynamically insignificant shunt. Patient is currently chest pain-free He also had elevated D-dimer, CT of the chest showed no PE, no aortic aneurysm or no dissection He has bilateral bronchial wall thickening with mild central tubular bronchiectasis and centrilobular pulmonary emphysema. Bibasilar subpleural and parenchymal fibrotic reticular mild interstitial opacities with associated linear areas of atelectasis with mild to moderate cardiomegaly. Patient is saturating well on room air and has no cough or any respiratory complaints Cardiology saw the patient do not believe his chest pain symptoms are related to an acute coronary syndrome or coronary disease. His UAM2AL0-CBCz score is at least 2. Cardiology did recommend starting Eliquis 5 mg twice daily. We can discontinue his aspirin once he starts Eliquis as per cardiology. Cardiology has recommended starting his prior home dose of Toprol-XL 25 mg daily on discharge Atrial septal aneurysm is an incidental finding with no evidence of PFO or shunting. Patient is ambulating without any issues. He denies any dizziness or lightheadedness or shortness of breath As per cardiology, he can be discharged with outpatient follow-up with his own reference test clerk Dr. Reaves in the [place] area. Patient seen and examined today. I have gone over the discharge care plan, medications, follow-up with patient and his who is at the bedside in great detail and answered all their questions. This discharge to greater than 30 minutes to coordinate Admission HPI Per Admitting Provider Justus Monge is a pleasant 78yo male with history of benign essential tremor and hypotension presenting with complaint of chest pain. Patient resides in the [place] area and is here for the football game. Earlier today around 16:00 he was unloading a car when he developed acute sudden substernal chest pain with radiation to the left shoulder. Patient reports the pain as pressure, some associated shortness of breath and lightheadedness. The chest pain lasted several hours then resolved on its own. Patient had a similar episode of chest pain several weeks ago which occurred while he was laying in bed trying to go to sleep. He reports difficulty getting comfortable. Pain lasted several hours on that occasion then resolved on its own. Patient endorses progressive NICHOLAS and decreased exercise tolerance over the last few months. Otherwise he denies palpitations, abdominal pain, nausea, vomiting, diarrhea, edema, orthopnea or weight gain. He denies heartburn, no trauma or overuse recently. Upon arrival to the ER patient with narrow complex tachycardia at 156bpm c oncerning for SVT. He was given Metoprolol 5mg IV with return to NSR. ER Course: Metoprolol 5mg IV Suellen renee reports no personal history of CAD or prior [place]. He did have a cardiac catheterization performed 5-6 years ago in [place] at [facility]. 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 No stents were placed. Patient was started on Metoprolol at that time. He follows with [facility] [place] - Dr. Reaves Discharge Exam General: No acute distress Psych: Awake and alert HEENT: Anicteric sclera, moist oral mucosa CVS: Regular rate and rhythm Lungs: Bilateral air entry, no wheezing noted Abdomen: Soft, nontender, no rebound, no guarding Ext: No lower extremity edema, no calf tenderness Neuro: No focal motor deficits noted Discharge Plan Discharge Items Patient Disposition: Home - Self-Care Reason For Visit: CHEST PAIN Discharge Diagnosis: Atrial fibrillation Atrial septal aneurysm Chronic diastolic dysfunction without heart failure History of orthostatic hypotension Elevated troponin, likely type II W[place] secondary to demand ischemia in setting of atrial fibrillation Activity: As commented below Activity Comment: As tolerated with assistance as needed Non-emergency contact: Primary Care Provider and Cleaner Greaser Call non-emergency contact if: you have any medication questions, your symptoms worsen and you have a fever Follow-up/Referrals: PCP,NO [Primary Care Provider] - Diet: Heart Healthy Addtl Attending Provider Instructions: DISCHARGE INSTRUCTION TO PATIENT/FAMILY: Follow-up with your primary care provider within 1 week regarding: Posthospital discharge, medication review, medication refills and follow-up on all your medical problems, blood pressure monitoring Follow-up with your outpatient reference test clerk and neurologist as soon as possible Please take all your discharge medications, discharge information and discharge instructions to all your doctors appointments. Avoid all NSAIDs including ibuprofen, Motrin, Advil, Aleve, naproxen, meloxicam, Toradol, diclofenac You have been started on a new medication called apixaban (Eliquis) 5 mg twice daily. This is for atrial flutter/fibrillation. Please follow-up with your reference test clerk regarding this. It increases your risk of bleeding. If you experience any bleeding of any kind, please call your PCP/cardiology or seek immediate medical help You had a CAT scan of your chest: CT of the chest showed no PE, no aortic aneurysm or no dissection It showed bilateral bronchial wall thickening with mild central tubular bronchiectasis and centrilobular pulmonary emphysema. Bibasilar subpleural and parenchymal fibrotic reticular mild interstitial opacities with associated linear areas of atelectasis with mild to moderate cardiomegaly. Your oxygen levels are fine. You are not in any respiratory distress. Please follow-up with your PCP regarding these chronic findings on your CAT scan of your chest Labs through PCP in 1 week: CBC, CMP, MG, TSH, FREE T4, VITAMIN D, VITAMIN B12 Pending Studies at Discharge: No Stand-Alone Forms: My [facility] [place], Smoking Cessation Medications and DC Order Prescriptions: New Eliquis 5 mg Tablet 5 mg PO BID Qty: 60 0RF metoprolol succinate 25 mg Tablet Extended Release 24 Hr 25 mg PO QAM Qty: 30 0RF Continued atorvastatin 20 mg tablet 20 mg PO QAM fludrocortisone 0.1 mg tablet 0.1 mg PO QAM fluticasone propionate 50 mcg/actuation spray,suspension 1 spray INTRANASAL QAM Held rasagiline 0.5 mg tablet 0.5 mg PO QAM Hold Instructions: Resume on 12/17/23. Follow-up with your neurologist/PCP and resume based on their advice/recommendation Discontinued aspirin [Aspir-Low] 81 mg Tablet,Delayed Release (Dr/Ec) 81 mg PO QAM Discharge Orders: Discharge Order (Routine); Ordered 12/12/23 Ordered By: Foster Bower/Other Patient Handouts: AFib Dc Admission Data Admit Date/Time: 12/11/23 22:53 Attending Provider: Foster Spence Admit Provider: Delores Babin Primary Care Provider: PCP,NO Other Providers: Delores Babin; Jose Abraham Hospital Stay Data Consultations 12/11/23 22:27 ED Decision to Admit Stat 12/12/23 01:26 Consult Cardiology Routine Diagnostic Imagining Performed 12/11/23 19:43 CT angio chest PE protocol Stat Chest X-Ray 12/11/23 19:12 XR chest 1V portable HISTORY: 78 years-old Male Chest pain, nonspecific COMPARISON: CTA chest of same day TECHNIQUE: AP view of the chest FINDINGS: Cardiomediastinal and hilar silhouettes are within normal limits. No pneumothorax, pleural effusion or pulmonary edema. Mild subsegmental bibasilar atelectasis. Bones appear grossly intact. IMPRESSION: No acute process. ACT 112: Negative or not required by law. The above report was generated using voice recognition software. It may contain grammatical, syntax or spelling errors. Electronically signed by: Ronni Mcnally M.D. 12/12/2023 6:46 AM Chest CTA 12/11/23 19:43 Exam(s): CTA CHEST EXAM: CT Angiography Chest With Intravenous Contrast CLINICAL HISTORY: Reason for exam: PE. TECHNIQUE: Axial computed tomographic angiography images of the chest with intravenous contrast. CTDI is 11.87 mGy and DLP is 573.81 mGy-cm. Automated exposure control was utilized for the study. A dose lowering technique was utilized adhering to the principles of ALARA. MIP reconstructed images were created and reviewed. COMPARISON: None. FINDINGS: Motion-induced image degradation. Pulmonary arteries: Main/central pulmonary arteries are normal in caliber. No pulmonary embolism. Aorta: No acute findings. Atherosclerotic calcification of the aortic arch. No thoracic aortic aneurysm. Heart: Mild/moderate cardiomegaly. No significant pericardial effusion. No evidence of RV dysfunction. Lungs: Central airways are patent. Bilateral bronchial wall thickening and mild dilatation/tubular bronchiectasis. Bilateral interstitial/septal thickening, mild/moderate centrilobular emphysema. Bibasilar subpleural and parenchymal interlobular/intra-lobular reticular interstitial thickening with linear areas of atelectasis demonstrated. Biapical mild pleural/parenchymal thickening. Medially in the left lower lobe adjacent to the esophagus a small calcified nodule/granuloma seen. No mass. No consolidation. Pleural space: Unremarkable. No significant effusion. No pneumothorax. Bones/joints: No acute fracture. No dislocation. Mid/lower thoracic degenerative endplate spondylosis with anteriorly bridging osteophytes. Soft tissues: Unremarkable. Lymph nodes: Small calcified prevascular and left hilar lymph nodes. No enlarged lymph nodes. IMPRESSION: No pulmonary embolism, aortic aneurysm or dissection. Bilateral bronchial wall thickening, mild central tubular bronchiectasis and centrilobular pulmonary emphysema. Bibasilar subpleural and parenchymal fibrotic reticular mild interstitial opacities with associated linear areas of atelectasis.. Mild/moderate cardiomegaly. Electronically signed by: Prasad Adrian MD, DABR 12/11/23 21:04 PM Laboratory Results - last 48 hr 12/11/23 12/11/23 12/11/23 19:23 19:28 21:33 WBC 7.11 RBC 4.90 Hgb 14.5 POC Hgb 15.0 Hct 45.2 POC Hct 44 MCV 92.2 MCH 29.6 MCHC 32.1 RDW Std Deviation 42.5 RDW Coeff of Erica 12.5 Plt Count 213 MPV 9.5 Immature Gran % (Auto) 0.3 Neut % (Auto) 61.2 Lymph % (Auto) 22.2 Kenton % (Auto) 9.8 Eos % (Auto) 5.1 Baso % (Auto) 1.4 Neut # (Auto) 4.35 Lymph # (Auto) 1.58 Kenton # (Auto) 0.70 H Eos # (Auto) 0.36 Baso # (Auto) 0.10 Immature Gran # (Auto) 0.02 D-Dimer 700 H* POC Sodium 143 Sodium 140 POC Potassium 3.7 Potassium 3.9 POC Chloride 106 Chloride 107 Carbon Dioxide 28 POC Total CO2 24 Anion Gap 5 POC Anion Gap 18.0 POC BUN 27 H BUN 27 H Creatinine 1.01 POC Creatinine 1.1 Est Cr Clr Drug Dosing 61.3 eGFR 76.60 BUN/Creatinine Ratio 26.7 H Glucose 109 H POC Glucose (other) 109 H Calcium 9.1 POC Ioniz Calcium Trey 1.23 Magnesium 2.1 Total Bilirubin 0.5 AST 18 ALT 12 Alkaline Phosphatase 74 Troponin I High Sens 8.0 26.1 H D B-Natriuretic Peptide 149 H Total Protein 6.6 Albumin 3.9 Globulin 2.7 Albumin/Globulin Ratio 1.4 Lipase 40 12/12/23 12/12/23 02:59 09:28 WBC 6.46 RBC 4.44 L Hgb 13.2 L POC Hgb Hct 40.6 L POC Hct MCV 91.4 MCH 29.7 MCHC 32.5 RDW Std Deviation 41.8 RDW Coeff of Erica 12.5 Plt Count 180 MPV 9.3 L Immature Gran % (Auto) Neut % (Auto) Lymph % (Auto) Kenton % (Auto) Eos % (Auto) Baso % (Auto) Neut # (Auto) Lymph # (Auto) Kenton # (Auto) Eos # (Auto) Baso # (Auto) Immature Gran # (Auto) D-Dimer POC Sodium Sodium 141 POC Potassium Potassium 3.5 POC Chloride Chloride 110 H Carbon Dioxide 27 POC Total CO2 Anion Gap 4 POC Anion Gap POC BUN BUN 20 Creatinine 0.77 POC Creatinine Est Cr Clr Drug Dosing 80.3 eGFR 92.21 BUN/Creatinine Ratio 26.0 H Glucose 97 POC Glucose (other) Calcium 8.6 POC Ioniz Calcium Trey Magnesium Total Bilirubin AST ALT Alkaline Phosphatase Troponin I High Sens 35.0 H 19.2 D B-Natriuretic Peptide Total Protein Albumin Globulin Albumin/Globulin Ratio Lipase Pending Results Patient Have Any Pending Studies at Discharge: No Discharge Instructions Given to Patient (Per Discharging Provider) DISCHARGE INSTRUCTION TO PATIENT/FAMILY: Follow-up with your primary care provider within 1 week regarding: Posthospital discharge, medication review, medication refills and follow-up on all your medical problems, blood pressure monitoring Follow-up with your outpatient reference test clerk and neurologist as soon as possible Please take all your discharge medications, discharge information and discharge instructions to all your doctors appointments. Avoid all NSAIDs including ibuprofen, Motrin, Advil, Aleve, naproxen, meloxicam, Toradol, diclofenac You have been started on a new medication called apixaban (Eliquis) 5 mg twice daily. This is for atrial flutter/fibrillation. Please follow-up with your reference test clerk regarding this. It increases your risk of bleeding. If you experience any bleeding of any kind, please call your PCP/cardiology or seek immediate medical help You had a CAT scan of your chest: CT of the chest showed no PE, no aortic aneurysm or no dissection It showed bilateral bronchial wall thickening with mild central tubular b ronchiectasis and centrilobular pulmonary emphysema. Bibasilar subpleural and parenchymal fibrotic reticular mild interstitial opacities with associated linear areas of atelectasis with mild to moderate cardiomegaly. Your oxygen levels are fine. You are not in any respiratory distress. Please follow-up with your PCP regarding these chronic findings on your CAT scan of your chest Labs through PCP in 1 week: CBC, CMP, MG, TSH, FREE T4, VITAMIN D, VITAMIN B12 Total Time Total Time Spent Total Time Spent (In Minutes): 35 minutes Total Time Includes: Examination of the Patient, Discharge Planning, Medication Reconciliation and Communication With Other Providers Coding Level of Care Code 25813 INP/OBS DISCH >30 MIN Diagnoses Atrial fibrillation I48.91 Atrial septal aneurysm I25.3 Diastolic dysfunction I51.89 Elevated troponin R79.89
[2023-12-12] MEDS: METOPROLOL SUCC 25MG EXT REL TAB PO SCH (14:17)
[2023-12-12 15:34] VITALS: BP 132/69; PULSE 70; TEMP 97.9; O2SAT 95
--- NOTE | 2023-12-12 18:46 | Electrocardiogram Report ---
Test Reason : Blood Pressure : */* mmHG Vent. Rate : 68 BPM Atrial Rate : 68 BPM P-R Int : 170 ms QRS Dur : 84 ms QT Int : 404 ms P-R-T Axes : -20 87 7 degrees QTcB Int : 429 ms Normal sinus rhythm Nonspecific ST and T wave abnormality Abnormal ECG Confirmed by Dario Faye ([id number]) on 12/12/2023 6:45:59 PM Referred By: REFERRED SELF Confirmed By: Dario Faye
--- NOTE | 2023-12-12 18:49 | Electrocardiogram Report ---
Test Reason : Blood Pressure : */* mmHG Vent. Rate : 82 BPM Atrial Rate : 82 BPM P-R Int : 202 ms QRS Dur : 74 ms QT Int : 344 ms P-R-T Axes : 58 10 37 degrees QTcB Int : 401 ms Normal sinus rhythm Possible Left atrial enlargement Borderline ECG When compared with ECG of 11-Dec-2023 19:16, (unconfirmed) Sinus rhythm has replaced Atrial flutter Vent. rate has decreased by [address] no longer depressed in Inferior leads ST no longer depressed in Lateral leads T wave inversion no longer evident in Inferior leads Confirmed by Dario Faye ([id number]) on 12/12/2023 6:49:36 PM Referred By: REFERRED SELF Confirmed By: Dario Faye
[2023-12-12] MEDS ORDERED: APIXABAN 5 MG TABLET PO SCH (21:00)
== END 2023-12-12 16:03 | disposition home or self-care (01) ==
LOC: 2S 19:02 → ED 19:02 → SUATTDRO 22:53 → 2S 12-12 01:48